=== PATIENT | male | born 1960 | race Caucasian/White ===

== ENCOUNTER 2018-01-07 11:33 | Observation (INO) | payer SELFPAY ==
--- NOTE | 2018-01-07 11:43 | ER Report ---
History and Physical Time Seen By MD: 11:42 Hx. of Stated Complaint: PT OD LAST NIGHT POSS XCANAX AND VSALIUM HPI/ROS CHIEF COMPLAINT: Altered mental status HISTORY OF PRESENT ILLNESS: This is a 57-year-old male who presents to the emergency department via EMS for altered mental status and questionable overdose. According to EMS the patient's had a questionable overdose yesterday, EMS did evaluate the patient and the patient did sign out, was not transported into the ER. The patient's girlfriend did call EMS again today, concerned that he may have overdosed on his Valium and Xanax. Patient has slurred speech, acc ording to EMS patient normally has some slurred speech but seems to be more prevalent today. While I'm in evaluating the patient, he denies intentionally overdosing, he states he did take 2 extra of his Valium and 2 extra of his Xanax this morning so that he could sleep. Patient denies any recent fevers or illnesses. Patient also states that he has had a stroke in the past, denies headaches, chest pain or shortness of breath. No other complaints at this time. Patient's speech is very slurred, continues to follow sleep during my examination. The patient also states that he is only been in this area for 3 days, he moved from [place]. REVIEW OF SYSTEMS: Constitutional: No fever, no chills. Eyes: No discharge. ENT: No sore throat. Cardiovascular: No chest pain, no palpitations. Respiratory: No cough, no shortness of breath. Gastrointestinal: No abdominal pain, no vomiting. Genitourinary: No hematuria. Musculoskeletal: No back pain. Skin: No rashes. Neurological: As above. Psych: As above. Allergies: Coded Allergies: No Known Drug Allergies (Unverified , 01/07/18) Home Meds Reported Medications Ropinirole Hcl (ROPINIROLE HCL) 5 Mg Tablet, 5 MG PO QPM 01/07/18 Naproxen Sodium (ALEVE) 220 Mg Capsule, 220 MG PO TID PRN for PAIN, CAPSULE 01/07/18 Olanzapine (OLANZAPINE) 20 Mg Tablet, 20 MG PO QPM 01/07/18 Ondansetron Hcl (ONDANSETRON HCL) 4 Mg Tablet, 4 MG PO BID PRN for NAUSEA, TAB 01/07/18 Naproxen (NAPROXEN) 500 Mg Tablet, 500 MG PO BIDBS PRN for INDIGESTION, TAB 01/07/18 Past Medical/Surgical History Patient has a past medical and surgical history of chronic pain, benzodiazepine use, stroke. COPD, cancer drinks daily. Reviewed Nurses Notes: Yes Constitutional Vital Sign - Last 24 Hours 01/07/18 01/07/18 01/07/18 01/07/18 11:33 11:35 11:36 11:48 Temp 97.8 Pulse ??? 70 65 Resp 15 25 B/P (MAP) 139/87 (104) 139/87 Pulse Ox 91 90 O2 Delivery Room Air 01/07/18 01/07/18 01/07/18 01/07/18 12:00 12:03 12:06 12:18 Pulse 64 ??? Resp 17 B/P (MAP) ???/??? (1665) 140/94 (109) 01/07/18 01/07/18 01/07/18 01/07/18 12:20 12:25 12:33 12:40 Pulse ??? Resp 21 B/P (MAP) 134/92 (106) 138/102 (114) Pulse Ox 85 O2 Flow Rate 2.0 01/07/18 01/07/18 01/07/18 01/07/18 12:48 13:00 13:03 13:18 Pulse 63 54 57 Resp 20 21 20 B/P (MAP) 139/84 (102) Pulse Ox 95 96 96 01/07/18 01/07/18 01/07/18 01/07/18 13:20 13:40 14:00 14:10 Pulse 55 Resp 18 B/P (MAP) 136/89 (105) 142/87 (105) 139/91 (107) Pulse Ox 93 Physical Exam General Appearance: The patient is alert however does rapidly returned to sleep without direct interaction, has no immediate need for airway protection and no signs of toxicity. Eyes: Pupils equal and round no pallor or injection. EOMs intact, no lateral or vertical nystagmus. ENT, Mouth: Mucous membranes are moist. Dry and geographic tongue. Missing dentures. Respiratory: There are no retractions, lungs are clear to auscultation. Cardiovascular: Regular rate and rhythm, no murmurs, clicks or rubs. Gastrointestinal: Abdomen is soft and non tender, no masses, bowel sounds normal. Neurological: Alert and oriented to self, year, president but not location, however the patient moved to the area within the last 3 days, moving all extremities. Following all commands. No focal neuro deficits. Unable to lift bilateral lower extremities secondary to pain in the knees. Negative pronator drift. Slurred speech unsure if this is baseline, exacerbated at baseline due to no teeth. Skin: Warm and dry, no rashes. Eczema and psoriasis on her chest, abdomen and knees. Musculoskeletal: Neck is supple non tender. Extremities are nontender, nonswollen and have full range of motion. DIFFERENTIAL DIAGNOSIS: After history and physical exam differential diagnosis was considered for altered mental status including but not limited to hypoglycemia, infectious process, electrolyte abnormality, head injury and intoxicants. Medical Decision Making Data Points Result Diagram: 01/07/18 1246 01/07/18 1246 Laboratory Hematology Test 01/07/18 12:10 01/07/18 12:46 01/07/18 13:04 Whole Blood Glucose 101 mg/DL (75-110) Red Blood Count 5.05 M/uL (4.00-5.60) Mean Corpuscular Volume 94.6 fL (80.0-96.0) Mean Corpuscular Hemoglobin 32.0 pg (26.0-33.0) Mean Corpuscular Hemoglobin Concent 33.8 g/dL (32.0-36.0) Red Cell Distribution Width 14.9 % (11.5-14.5) Mean Platelet Volume 9.1 fL (7.2-11.1) Neutrophils (%) (Auto) 67.2 % (39.4-72.5) Lymphocytes (%) (Auto) 25.4 % (17.6-49.6) Monocytes (%) (Auto) 6.1 % (4.1-12.4) Eosinophils (%) (Auto) 0.4 % (0.4-6.7) Basophils (%) (Auto) 0.9 % (0.3-1.4) Nucleated RBC Relative Count (auto) 0.0 /100WBC Neutrophils # (Auto) 5.4 K/uL (2.0-7.4) Lymphocytes # (Auto) 2.0 K/uL (1.3-3.6) Monocytes # (Auto) 0.5 K/uL (0.3-1.0) Eosinophils # (Auto) 0.0 K/uL (0.0-0.5) Basophils # (Auto) 0.1 K/uL (0.0-0.1) Nucleated RBC Absolute Count (auto) 0.00 K/uL Sodium Level 144 mmol/L (137-145) Potassium Level 3.8 mmol/L (3.5-5.0) Chloride Level 104 mmol/L (98-107) Carbon Dioxide Level 30 mmol/L (22-30) Blood Urea Nitrogen 8 mg/dl (9-21) Creatinine 0.70 mg/dl (0.66-1.25) Glomerular Filtration Rate Calc > 60.0 Random Glucose 96 mg/dl (75-110) Calcium Level 9.2 mg/dl (8.4-10.2) Magnesium Level 2.3 mg/dl (1.7-2.2) Total Bilirubin 0.8 mg/dl (0.2-1.3) Aspartate Amino Transf (AST/SGOT) 57 U/L (0-35) Alanine Aminotransferase (ALT/SGPT) 53 U/L (0-56) Alkaline Phosphatase 92 U/L (0-126) Ammonia 10 UMOL/L (9-33) Total Protein 6.8 g/dl (6.3-8.2) Albumin 3.6 g/dl (3.5-5.0) Thyroid Stimulating Hormone (TSH) 0.79 uIU/ml (0.46-4.68) Salicylates Level < 10 mg/L Salicylate Last Dose Date unk Acetaminophen Level < 10 ug/ml Serum Alcohol < 10 mg/dl Urine Color Yellow Urine Clarity Clear Urine pH 7.0 pH (4.8-9.5) Urine Specific [place] 1.008 Urine Protein Negative mg/dL (NEGATIVE) Urine Glucose (UA) Negative mg/dL (NEGATIVE) Urine Ketones Negative mg/dL (NEGATIVE) Urine Blood Negative (NEGATIVE) Urine Nitrite Negative (NEGATIVE) Urine Bilirubin Negative (NEGATIVE) Urine Urobilinogen 4.0 mg/dL (0.2-1.9) Urine Leukocyte Esterase Negative (NEGATIVE) Urine RBC None /HPF (0-2/HPF) Urine WBC 1 /HPF (0-5/HPF) Urine Squamous Epithelial Cells Few /LPF (NONE-FEW) Urine Bacteria Negative /HPF (NONE-FEW) Urine Mucus None /HPF (NONE-FEW) Urine Opiates Screen Negative Urine Barbiturates Screen Negative Ur Tricyclic Antidepressants Screen Negative Urine Phencyclidine Screen Negative Urine Amphetamines Screen Negative Urine Benzodiazepines Screen Positive Urine Cocaine Screen Negative Urine Cannabinoids Screen Negative Chemistry Test 01/07/18 12:10 01/07/18 12:46 01/07/18 13:04 Whole Blood Glucose 101 mg/DL (75-110) White Blood Count 8.0 k/uL (4.5-11.0) Red Blood Count 5.05 M/uL (4.00-5.60) Hemoglobin 16.1 g/dL (14.0-18.0) Hematocrit 47.7 % (42.0-52.0) Mean Corpuscular Volume 94.6 fL (80.0-96.0) Mean Corpuscular Hemoglobin 32.0 pg (26.0-33.0) Mean Corpuscular Hemoglobin Concent 33.8 g/dL (32.0-36.0) Red Cell Distribution Width 14.9 % (11.5-14.5) Platelet Count 218 K/uL (150-450) Mean Platelet Volume 9.1 fL (7.2-11.1) Neutrophils (%) (Auto) 67.2 % (39.4-72.5) Lymphocytes (%) (Auto) 25.4 % (17.6-49.6) Monocytes (%) (Auto) 6.1 % (4.1-12.4) Eosinophils (%) (Auto) 0.4 % (0.4-6.7) Basophils (%) (Auto) 0.9 % (0.3-1.4) Nucleated RBC Relative Count (auto) 0.0 /100WBC Neutrophils # (Auto) 5.4 K/uL (2.0-7.4) Lymphocytes # (Auto) 2.0 K/uL (1.3-3.6) Monocytes # (Auto) 0.5 K/uL (0.3-1.0) Eosinophils # (Auto) 0.0 K/uL (0.0-0.5) Basophils # (Auto) 0.1 K/uL (0.0-0.1) Nucleated RBC Absolute Count (auto) 0.00 K/uL Glomerular Filtration Rate Calc > 60.0 Calcium Level 9.2 mg/dl (8.4-10.2) Magnesium Level 2.3 mg/dl (1.7-2.2) Total Bilirubin 0.8 mg/dl (0.2-1.3) Aspartate Amino Transf (AST/SGOT) 57 U/L (0-35) Alanine Aminotransferase (ALT/SGPT) 53 U/L (0-56) Alkaline Phosphatase 92 U/L (0-126) Ammonia 10 UMOL/L (9-33) Total Protein 6.8 g/dl (6.3-8.2) Albumin 3.6 g/dl (3.5-5.0) Thyroid Stimulating Hormone (TSH) 0.79 uIU/ml (0.46-4.68) Salicylates Level < 10 mg/L Salicylate Last Dose Date unk Acetaminophen Level < 10 ug/ml Serum Alcohol < 10 mg/dl Urine Color Yellow Urine Clarity Clear Urine pH 7.0 pH (4.8-9.5) Urine Specific [place] 1.008 Urine Protein Negative mg/dL (NEGATIVE) Urine Glucose (UA) Negative mg/dL (NEGATIVE) Urine Ketones Negative mg/dL (NEGATIVE) Urine Blood Negative (NEGATIVE) Urine Nitrite Negative (NEGATIVE) Urine Bilirubin Negative (NEGATIVE) Urine Urobilinogen 4.0 mg/dL (0.2-1.9) Urine Leukocyte Esterase Negative (NEGATIVE) Urine RBC None /HPF (0-2/HPF) Urine WBC 1 /HPF (0-5/HPF) Urine Squamous Epithelial Cells Few /LPF (NONE-FEW) Urine Bacteria Negative /HPF (NONE-FEW) Urine Mucus None /HPF (NONE-FEW) Urine Opiates Screen Negative Urine Barbiturates Screen Negative Ur Tricyclic Antidepressants Screen Negative Urine Phencyclidine Screen Negative Urine Amphetamines Screen Negative Urine Benzodiazepines Screen Positive Urine Cocaine Screen Negative Urine Cannabinoids Screen Negative Toxicology Test 01/07/18 12:46 01/07/18 13:04 Salicylates Level < 10 mg/L Salicylate Last Dose Date unk Acetaminophen Level < 10 ug/ml Serum Alcohol < 10 mg/dl Urine Opiates Screen Negative Urine Barbiturates Screen Negative Ur Tricyclic Antidepressants Screen Negative Urine Phencyclidine Screen Negative Urine Amphetamines Screen Negative Urine Benzodiazepines Screen Positive Urine Cocaine Screen Negative Urine Cannabinoids Screen Negative Urinalysis Test 01/07/18 13:04 Urine Color Yellow Urine Clarity Clear Urine pH 7.0 pH (4.8-9.5) Urine Specific [place] 1.008 Urine Protein Negative mg/dL (NEGATIVE) Urine Glucose (UA) Negative mg/dL (NEGATIVE) Urine Ketones Negative mg/dL (NEGATIVE) Urine Blood Negative (NEGATIVE) Urine Nitrite Negative (NEGATIVE) Urine Bilirubin Negative (NEGATIVE) Urine Urobilinogen 4.0 mg/dL (0.2-1.9) Urine Leukocyte Esterase Negative (NEGATIVE) Urine RBC None /HPF (0-2/HPF) Urine WBC 1 /HPF (0-5/HPF) Urine Squamous Epithelial Cells Few /LPF (NONE-FEW) Urine Bacteria Negative /HPF (NONE-FEW) Urine Mucus None /HPF (NONE-FEW) EKG/Imaging EKG Interpretation 12 lead EKG: Time of EKG 1141. Rhythm: Normal sinus rhythm, ventricular rate 62 bpm. Ruffin: normal QRS: normal ST segments: No ST elevation or depression identified. Poor T-wave progression in V2, V3. [place] [facility] [place] rK[place] : 1960 Visit/Account:[id number] Date of Sevice: 01/07/2018 EXAMINATION: CT Head without intravenous contrast HISTORY: Altered mental status. TECHNIQUE: Axial images were obtained from the skull base to the vertex without intravenous contrast. Sagittal and coronal reformatted images are also submitted. One of the following dose optimization techniques was utilized in the performance of this exam: Automated exposure control; adjustment of the mA and/or kV according to the patient's size; or use of an iterative reconstruction technique. Specific details can be referenced in the facility's radiology CT exam operational policy. COMPARISON: None available. FINDINGS: Brain volume: Normal. Ventricles: Negative. Acute ischemic changes: None. Hemorrhage: None. Masses / edema: None. Prasad-white: Negative. White matter: Negative. Vessels: Mild carotid siphon calcification. Normal density in the dural venous sinuses. Extra-axial: Negative. Calvarium / skull base: Negative. Visualized sinuses / orbits: Leftward nasal septal deviation. IMPRESSION: No acute intracranial abnormality. Report Dictated By: Patricia Monteiro MD at 01/07/2018 1:04 PM Report E-Signed By: Patricia Monteiro MD at 01/07/2018 1:09 PM WSN:[email or web address] [place] [facility] [place] Kristopher Inman : 1960 Visit/Account:[id number] Date of Sevice: 01/07/2018 HISTORY: Altered status DATE: 01/07/2018 11:56 AM TECHNIQUE: CHEST SINGLE AP COMPARISON: none FINDINGS: The cardiomediastinal silhouette is of normal size and contour. No pleural effusion. No pneumothorax. No consolidation. The lungs are adequately expanded. IMPRESSION: No acute findings. Report Dictated By: Amanda Grimes MD at 01/07/2018 1:08 PM Report E-Signed By: Amanda Grimes MD at 01/07/2018 1:09 PM WSN:[id number] ED Course/Re-evaluation Clinical Indication for ER IV: Hydration, IV Access ED Course The patient was admitted to a room. A history and physical obtained. Differen tial diagnoses were considered. An IV was started. A CBC, CMP, catheter UA and tox screen were obtained. The CBC is unremarkable, chemistry unremarkable, negative serum alcohol, tox screen negative except for benzodiazepines negative urine. A CT of the head was negative for any acute intracranial abnormalities. Single view chest x-ray was negative for any acute cardiopulmonary process. I did try to explain these to the patient, he was still very very somnolent, not able to stay awake while was talking to him. Continue to have snoring respirations. Did have a very weak cough. Patient's speech was very slurred and very incomprehensible most the time, I did wash his mouth out with a moist washc loth which did seem to help, I did tell the patient that I was concerned that sending him home would potentially lead to an aspiration event and he was agreeable to admission to the hospital. I did speak with Dr. Silva as noted below, he has accepted the patient in the hospitalist services for altered mental status and intentional overdose of benzodiazepines. Patient did get a 1 L normal saline bolus. 01/07/2018 2:01:01 pm I did speak with the patient about the information to the family, the patient's old boy did say he did not want any information released was family fits in the waiting room. I also asked the patient if it's possible I would talk to the hospitalist about keeping him in the hospital, my concern is that he is not able to manage himself at home, my concern would be aspiration. I did speak with Dr. Silva regarding the patient's case, he has accepted the patient into the hospitalist services for observation, unintentional overdose and altered mental status. Decision to Disposition Date: Jan 07, 2018 Decision to Disposition Time: 14:00 Depart Departure Latest Vital Signs Vital Signs Date Time Temp Pulse Resp B/P (MAP) Pulse Ox O2 Delivery O2 Flow Rate FiO2 01/07/18 14:10 55 18 93 01/07/18 14:00 139/91 (107) 01/07/18 12:25 2.0 01/07/18 11:36 97.8 Room Air Impression: Primary Impression: Benzodiazepine (tranquilizer) overdose Additional Impression: Altered mental status Condition: Condition Unchanged Disposition: Admitted from ER Problem Qualifiers Primary Impression: Benzodiazepine (tranquilizer) overdose Encounter type: initial encounter Injury intent: undetermined intent Qualified Codes: T42.4X4A - Poisoning by benzodiazepines, undetermined, initial encounter Additional Impression: Altered mental status Altered mental status type: somnolence Qualified Codes: R40.0 - Somnolence PATRICIA MALAVE CARDIAC CATH LAB RADIOLOGY TECHNOLOGIST-BC Jan 07, 2018 11:42
[2018-01-07] MEDS ORDERED: NS(*) 0.9% 1000 ML BAG 1,000 ML IV ONE (11:56)
--- NOTE | 2018-01-07 12:03 | EKG ---
FACILITY: [facility] [place] PATIENT NAME: FOSTER RIVAS : [id number] MR: [id number] V: [id number] EXAM DATE: ORDERING PHYSICIAN: PATRICIA MALAVE TECHNOLOGIST: DEVIN Borden Reason : NEURO Blood Pressure : / mmHG Vent. Rate : 062 BPM Atrial Rate : 062 BPM P-R Int : 184 ms QRS Dur : 086 ms QT Int : 442 ms P-R-T Axes : 001 021 005 degrees QTc Int : 448 ms Normal sinus rhythm Normal ECG No previous ECGs available Confirmed by MARCIE BOSS ([id number]) on 01/07/2018 8:16:21 PM Referred By: Confirmed By:MARCIE BOSS
[2018-01-07 12:55] LABS: PLATELET COUNT, AUTOMATED 218 K/uL (150-450)
--- NOTE | 2018-01-07 13:12 | RADIOLOGY IMAGING REPORT ---
FACILITY: [facility] PATIENT NAME: Kristopher Inman : 1960 MR: [id number] V: [id number] EXAM DATE: [id number] ORDERING PHYSICIAN: PATRICIA MALAVE TECHNOLOGIST: Location: [facility] [place] Patient: Kristopher Inman : 1960 Visit/Account:[id number] Date of Sevice: 01/07/2018 EXAMINATION: CT Head without intravenous contrast HISTORY: Altered mental status. TECHNIQUE: Axial images were obtained from the skull base to the vertex without intravenous contrast . Sagittal and coronal reformatted images are also submitted. One of the following dose optimization techniques was utilized in the performance of this exam: Autom ated exposure control; adjustment of the mA and/or kV according to the patient's size; or use of an i terative reconstruction technique. Specific details can be referenced in the facility's radiology C T exam operational policy. COMPARISON: None available. FINDINGS: Brain volume: Normal. Ventricles: Negative. Acute ischemic changes: None. Hemorrhage: None. Masses / edema: None. Prasad-white: Negative. White matter: Negative. Vessels: Mild carotid siphon calcification. Normal density in the dural venous sinuses. Extra-axial: Negative. Calvarium / skull base: Negative. Visualized sinuses / orbits: Leftward nasal septal deviation. IMPRESSION: No acute intracranial abnormality. Report Dictated By: Patricia Monteiro MD at 01/07/2018 1:04 PM Report E-Signed By: Patricia Monteiro MD at 01/07/2018 1:09 PM WSN:[email or web address]
--- NOTE | 2018-01-07 13:13 | RADIOLOGY IMAGING REPORT ---
FACILITY: [facility] PATIENT NAME: Kristopher Inman : 1960 MR: [id number] V: [id number] EXAM DATE: ORDERING PHYSICIAN: PATRICIA MALAVE TECHNOLOGIST: Location: [facility] [place] Patient: Kristopher Inman : 1960 Visit/Account:[id number] Date of Sevice: 01/07/2018 HISTORY: Altered status DATE: 01/07/2018 11:56 AM TECHNIQUE: CHEST SINGLE AP COMPARISON: none FINDINGS: The cardiomediastinal silhouette is of normal size and contour. No pleural effusion. No pne umothorax. No consolidation. The lungs are adequately expanded. IMPRESSION: No acute findings. Report Dictated By: Amanda Grimes MD at 01/07/2018 1:08 PM Report E-Signed By: Amanda Grimes MD at 01/07/2018 1:09 PM WSN:[id number]
[2018-01-07] MEDS ORDERED: INFLUENZA VIRUS VAC 0.5ML SYR IM ONLY ONE (15:15)
[2018-01-07] MEDS: ALBUTEROL/IPRATROPIUM 3 ML NEB NEB PRN (15:26)
--- NOTE | 2018-01-07 15:39 | History & Physical ---
History of Present Illness Chief Complaint Altered Mental Status History of Present Illness He is a 57-year-old male who presented to the emergency department via EMS for altered mental status and questionable overdose. According to EMS the patient's had a questionable overdose yesterday, EMS did evaluate the patient and the patient did sign out, was not transported into the ER. The patient's friend did call EMS again today, concerned that he may have overdosed on his Valium and Xanax. Patient has slurred speech, according to EMS patient normally has some slurred speech but seems to be more prevalent today. He denied intentionally overdosing to ER staff, and stated he did take 2 extra of his Valium and 2 extra of his Xanax this morning so that he could sleep. Patient denies any recent fevers or illnesses. Patient also states that he has had a stroke in the past, denies headaches, chest pain or shortness of breath. No other complaints at this time. Patient's speech is very slurred and not understandable, continues to follow sleep during my examination. The patient also states that he is only been in this area for 3 days, he moved from [place]. He was recommended for admission. History Problems: (1) COPD (chronic obstructive pulmonary disease) Status: Chronic (2) Cancer of abdomen Allergies: Coded Allergies: No Known Drug Allergies (Unverified , 01/07/18) Hx Alcohol Use: Yes (DAILY BEERS) Review of Systems All Systems Reviewed/Normal: Yes, Except as Noted Neurological: Slurred Speech Respiratory: Cough, Wheezing Exam Vital Signs Vital Signs Date Time Temp Pulse Resp B/P (MAP) Pulse Ox O2 Delivery O2 Flow Rate FiO2 01/07/18 12:25 2.0 01/07/18 11:36 97.8 70 15 139/87 91 Room Air General Appearance: Afebrile Neuro: Other (somnolent throughout exam) Cardiovascular: Regular Rate and Rhythm Respiratory: Other (expiratory wheezes present) Extremities: No Edema Integumentary: Other (psorasis present to bilat knees) Psych: Other (somnolent) Medical Decision Making Data Points Result Diagram: 01/07/18 1246 01/07/18 1246 EKG / Imaging Imaging FACILITY: [facility] [place] PATIENT NAME: Kristopher Inman : 1960 MR: [id number] V: [id number] EXAM DATE: ORDERING PHYSICIAN: JOSE MIGUEL MALAVE TECHNOLOGIST: [facility] Patient: Kristopher Inman : 1960 Visit/Account:[id number] Date of Sevice: 01/07/2018 HISTORY: Altered status DATE: 01/07/2018 11:56 AM TECHNIQUE: CHEST SINGLE AP COMPARISON: none FINDINGS: The cardiomediastinal silhouette is of normal size and contour. No pleural effusion. No pneumothorax. No consolidation. The lungs are adequately expanded. IMPRESSION: No acute findings. Report Dictated By: Amanda Grimes MD at 01/07/2018 1:08 PM Report E-Signed By: Amanda Grimes MD at 01/07/2018 1:09 PM PATIENT NAME: Kristopher Inman : 1960 MR: [id number] V: [id number] EXAM DATE: [id number] ORDERING PHYSICIAN: JOSE MIGUEL MALAVE TECHNOLOGIST: [facility] Patient: Kristopher Inman : 1960 Visit/Account:[id number] Date of Sevice: 01/07/2018 EXAMINATION: CT Head without intravenous contrast HISTORY: Altered mental status. TECHNIQUE: Axial images were obtained from the skull base to the vertex without intravenous contrast. Sagittal and coronal reformatted images are also submitted. One of the following dose optimization techniques was utilized in the performance of this exam: Automated exposure control; adjustment of the mA and/or kV according to the patient's size; or use of an iterative reconstruction technique. Specific details can be referenced in the facility's radiology CT exam operational policy. COMPARISON: None available. FINDINGS: Brain volume: Normal. Ventricles: Negative. Acute ischemic changes: None. Hemorrhage: None. Masses / edema: None. Prasad-white: Negative. White matter: Negative. Vessels: Mild carotid siphon calcification. Normal density in the dural venous sinuses. Extra-axial: Negative. Calvarium / skull base: Negative. Visualized sinuses / orbits: Leftward nasal septal deviation. IMPRESSION: No acute intracranial abnormality. Report Dictated By: Jose Miguel Monteiro MD at 01/07/2018 1:04 PM Report E-Signed By: Jose Miguel Monteiro MD at 01/07/2018 1:09 PM Assessment and Plan Problems: (1) Altered mental status Status: Acute Assessment & Plan: He was admitted with slurred speech. Unable to understand the patient for examination. He will be placed NPO, as he appears he could aspirate due to sedation. (2) Benzodiazepine (tranquilizer) overdose Status: Acute Assessment & Plan: He does take Valium and Xanax. This will be held during admission. (3) COPD (chronic obstructive pulmonary disease) Status: Chronic Assessment & Plan: He was admitted with wheezing and coughing. His friend believes he has COPD. Unknown if he is treated for it. He will be placed on Duoneb treatments. (4) Cancer of abdomen Assessment & Plan: His friend believes he has cancer of the abdomen, which has been making him nauseous lately. But, will wait until he awakes to confirm diagnosis. She doesn't think he had treatment for it. Venous Thromboembolism Antithrombotics Is Pt On Any Antithrombotics?: Yes Exam Sepsis Risk: No Definite Risk Problem Qualifiers (1) Altered mental status: Altered mental status type: somnolence Qualified Codes: R40.0 - Somnolence (2) Benzodiazepine (tranquilizer) overdose: Encounter type: initial encounter Injury intent: undetermined intent Qu alified Codes: T42.4X4A - Poisoning by benzodiazepines, undetermined, initial encounter YANETH IYER NEEDLE P[employer]CH MACHINE OPERATOR Jan 07, 2018 15:39
[2018-01-07] MEDS ORDERED: NAPR220C12 PO (16:17)
[2018-01-07] MEDS ORDERED: ROPI5TAB20 PO (16:17)
[2018-01-07] MEDS ORDERED: NAPR500T31 PO (16:17)
[2018-01-07] MEDS ORDERED: ONDA-2 PO (16:17)
[2018-01-07] MEDS ORDERED: OLAN20TA22 PO (16:17)
[2018-01-07 20:24] VITALS: BP 148/97
[2018-01-08 03:53] VITALS: BP 126/87
[2018-01-08] MEDS: ALBUTEROL/IPRATROPIUM 3 ML NEB NEB PRN ×2 (04:38→09:45)
[2018-01-08 07:29] VITALS: BP 133/83
[2018-01-08] MEDS ORDERED: ENOXAPARIN 40 MG/0.4ML SYR SC SCH (09:00)
--- NOTE | 2018-01-08 09:39 | Hospitalist Depart ---
Discharge Summary Reason for Hosp/Final Diag: (1) Altered mental status Status: Acute Hospital Course & Plan: He was admitted with slurred speech and was unable to understand the patient for examination. He was placed NPO, as he was at risk for aspiration due to sedation from benzo overdose. He has improved in mental s tatus, and he is able to speak clearly this morning. (2) Benzodiazepine (tranquilizer) overdose Status: Acute Hospital Course & Plan: He did take Valium and Xanax in overdose. He does not have rx for this medication. Unsure where he did receive medication from. His ex- called the medical floor last night and reported that he does often overdose for "attention". She states since February he has been detained 7 times for suicide attempts. I consulted Dr. Rojo and has agreed to accept this patient to [facility] services, as he is now cleared medically. He was unwilling to sign in voluntarily, so he was emergency detained. He will be transferred to [facility] for further treatment. (3) COPD (chronic obstructive pulmonary disease) Status: Chronic Hospital Course & Plan: He was admitted with wheezing and coughing. He was placed on Duoneb treatments. (4) Cancer of abdomen Hospital Course & Plan: He states has cancer of the abdomen (unsure what type), which has been making him nauseous lately. He has not required treatment for it. Departure Latest Vital Signs Vital Signs 01/08/18 01/08/18 01/08/18 01/08/18 07:29 09:42 09:46 09:47 Temp 98.2 Pulse 60 Resp 18 B/P (MAP) 133/83 (100) Pulse Ox 91 O2 Delivery Nasal Cannula O2 Flow Rate 2.0 Weight (Pounds): 195 Result Diagram: 01/07/18 1246 01/07/18 1246 Condition: Improved Discharge: [facility] Discharge Instructions Home Meds Reported Medications Ropinirole Hcl (ROPINIROLE HCL) 5 Mg Tablet, 5 MG PO QPM 01/07/18 Naproxen Sodium (ALEVE) 220 Mg Capsule, 220 MG PO TID PRN for PAIN, CAPSULE 01/07/18 Olanzapine (OLANZAPINE) 20 Mg Tablet, 20 MG PO QPM 01/07/18 Ondansetron Hcl (ONDANSETRON HCL) 4 Mg Tablet, 4 MG PO BID PRN for NAUSEA, TAB 01/07/18 Naproxen (NAPROXEN) 500 Mg Tablet, 500 MG PO BIDBS PRN for INDIGESTION, TAB 01/07/18 Diet: Regular Activity: As Tolerated Venous Thromboembolism Antithrombotics Is Pt On Any Antithrombotics?: Yes Problem Qualifiers (1) Altered mental status: Altered mental status type: somnolence Qualified Codes: R40.0 - Somnolence (2) Benzodiazepine (tranquilizer) overdose: Encounter type: initial encounter Injury intent: undetermined intent Qualified Codes: T42.4X4A - Poisoning by benzodiazepines, undetermined, initial encounter YANETH IYERP Jan 08, 2018 09:39
--- NOTE | 2018-01-08 11:26 | BHS - Psychiatric Evaluation ---
ER - Title 25 MHE Evaluation Title 25 Evaluation Patient Detained By: Therapist (Gila chaudhry [facility] Referral Source: Emergency Room where patient said he went for pain in his finger Date Patient Detained: Jan 08, 2018 Time Patient Detained: 09:20 Date Fdc Expires: Jan 11, 2018 Time Fdc Expires: 09:20 Legal Status: Police Hold: No Legal Status: Residence: Other (Says he very recently moved from [place]) Assessment Data Provided By: Patient, Therapist, Other Source (Patient's [facility] nurse, and patient's electronic medical record ) HPI/ROS: Altered mental status HISTORY OF PRESENT ILLNESS: This is a 57-year-old male who presents to the emergency department via EMS for altered mental status and questionable overdose. According to EMS the patient's had a questionable overdose yesterday, EMS did evaluate the patient and the patient did sign out, was not transported into the ER. The patient's girlfriend did call EMS again today, concerned that he may have overdosed on his Valium and Xanax. Patient has slurred speech, according to EMS patient normally has some slurred speech but seems to be more prevalent today. While I'm in evaluating the patient, he denies intentionally overdosing, he states he did take 2 extra of his Valium and 2 extra of his Xanax this morning so that he could sleep. Patient denies any recent fevers or illnesses. Patient also states that he has had a stroke in the past, denies headaches, chest pain or shortness of breath. Admit due to SI or Attempt: No Suicide Plan: No Plan Current Suicide Plan Patient denies. Alcohol or Drugs Involved: Yes (patient says he takes up to four Xanax per day in addition to pain medicine) Is Patient Info Reliable: No (Patient says he was not trying to overdose. It seems possible that patient has lost judgement about safe medicine ingestion.) Is Collateral Info Reliable: No (No collateral information gained at this interview) Current Home Psych Meds: Xanax Mental Status Exam General Appearance: Good Eye Contact, Unkept, Bizarre Mannerisms (Patient naked, and has rigid posture) Speech: No Normal Volume (patient is louder than warranted for the interview); Delayed Mood: Other (patient frustrated about being at the hospital on a Title 25 hold) Affect: Agitated Thought Process: Other (Blaming and minimizing of any safety problems) Thought Content: Suicidal Ideation (Denies ideation, when asked if he has ever tried to take his life before, he says, "I'm not going to answer that." ) Cognition: Alert & Oriented-Person; No Alert & Oriented-Place, No Alert & Oriented-Time, No Jwszl-Blzvyklj-Plarobuvj Memory: Immediate Insight Judgment: Poor Hallucinations: Denies Delusions: Denies Current Risk & History Current Dangerous Risk Assessm: Ubable to Care for Self (Patient may have lost his ability to carefully manage medication regimen, overdose could result in fatality) Past Dangerous Risk Assessm: Suicide Ideation-last 6mo (Unknown at this time.) Prior Alcohol/Drug Abuse Patient acknowledged drinking frequently to a nurse. Previous Suicide Attempt: No Previous Attempt (Says, "I will not answer that." ) Number of Attempts/Description Refuses to give any detail about any past attempts. Previous Psychiatric Illness: Yes (Given medication for anxiety.) Previous Diagnosis/Treatment: Possible anxiety diagnosis Previous Psychiatric Treatment: Yes (Given medication for anxiety.) Risk Assessment & Disposition Evaluated Risk Assessment: Patient is high risk for losing his life. He may have lost his ability to carefully manage medication regimen, overdose could result in fatality. Patient's gf communicated to [facility] medical staff that patient took too many of his medications, and she was concerned. Patient does not receive any outpatient services, and may not understand how to take his medication at recommended doses early, as well as the dangers of combing benzodiazepines with alcohol. Impression: Primary Impression: Benzodiazepine (tranquilizer) overdose Additional Impression: Altered mental status Meets Mental Illness Req.: Yes Meets Dangerousness Req.: Yes Emergency Fdc to be: Upheld Decision Comment: Patient needs to be evaluated as his behaviors put patient at high risk for losing his life. He may have lost his ability to carefully manage medication regimen, overdose could result in fatality. Patient's girl friend communicated to [facility] medical staff that patient took too many of his medications, and she was concerned. Patient does not receive any outpatient services, and may not understand how to take his medication at recommended doses early, as well as the dangers of combing benzodiazepines with alcohol. He denies previous suicidal ideation, but seems to only be refusing to disclose, says, "Im not going to answer that because you want to put me in the nuthouse for it." Patient mental state is altered. He does not know what town he is in. Date of Decision: Jan 08, 2018 Time of Decision: 09:20 Patient is Medically Stable at: Yes Disposition: [facility] Problem Qualifiers Primary Impression: Benzodiazepine (tranquilizer) overdose Encounter type: initial encounter Injury intent: undetermined intent Qualified Codes: T42.4X4A - Poisoning by benzodiazepines, undetermined, initial encounter Additional Impression: Altered mental status Altered mental status type: somnolence Qualified Codes: R40.0 - Somnolence GURU REYES PATTERNMAKER SAMPLE Jan 08, 2018 11:26
[2018-01-08] MEDS ORDERED: ALPR-429 PO (14:23)
[2018-01-08] MEDS ORDERED: DIAZ-308 PO (14:23)
[2018-01-08] MEDS ORDERED: VORT10TA PO (14:23)
[2018-01-08] MEDS ORDERED: ZOLP-358 PO (14:23)
== END 2018-01-08 11:08 ==
LOC: EDBD 11:33 → ER 11:43 → INTOOBSV 14:19 → MED 14:19 → BHS 01-08 11:03
PROVIDERS: ADMIT Family Medicine; ATTEND Psychiatry & Neurology Psychiatry
DX: T42.4X4A Poisoning by benzodiazepines, undetermined, initial encounter (principal); R40.0 Somnolence; J44.9 Chronic obstructive pulmonary disease, unspecified; C76.2 Malignant neoplasm of abdomen
CPT/HCPCS: 36415; 36416; 70450; 71045; 80305; 80320; 80329; 81001; 82140; 82948; 83735; 84443; 85025; 93005; 94640; 96360; 96361; 99284; G0378; J7030; J7620; 82040; 82247; 82310; 82374; 82435; 82565; 82947; 84075; 84132; 84155; 84295; 84450; 84460; 84520

== ENCOUNTER → 2018-01-07 | Outpatient (CLI) | payer OTHER ==
[~2018-01-07] MED LIST: ALPR-429 PO; DIAZ-308 PO; GUAI600T57 PO; IBUP600T22 PO; MULT-1379 PO; NAPR220C12 PO; NAPR500T31 PO; NIC10R INH; NICOTROL CARTRIDGE PO; OLAN20TA22 PO; ONDA-2 PO; ROPI5TAB17 PO; ROPI5TAB20 PO; VORT10TA PO; ZOLP-358 PO; trintellix
== END ==
LOC: AMB 10:24
PROVIDERS: ATTEND Nurse Practitioner
DX: R47.81 Slurred speech (principal); R41.82 Altered mental status, unspecified; R09.02 Hypoxemia
CPT/HCPCS: A0425; A0427

== ENCOUNTER 2018-01-08 11:10 | Inpatient (IN) | payer OTHER ==
[~2018-01-08] VITALS: Ht 177.8 cm; Wt 80.7 kg
[~2018-01-08 11:10] MED LIST changes: -ALPR-429 PO; -DIAZ-308 PO; -GUAI600T57 PO; -IBUP600T22 PO; -MULT-1379 PO; -NIC10R INH; -NICOTROL CARTRIDGE PO; -ROPI5TAB17 PO; -VORT10TA PO; -ZOLP-358 PO; -trintellix
[2018-01-08] MEDS ORDERED: NICOTINE CARTRIDGE 1 EA PO PRN (11:30)
[2018-01-08] MEDS ORDERED: NICOTINE INH SYSTEM 10 MG/INH INH PRN (11:30)
[2018-01-08] MEDS ORDERED: MAG HYD/AL HYD/SIMETH 30ML UDC PO PRN (12:05)
[2018-01-08 12:28] VITALS: BP 136/92
[2018-01-08] MEDS ORDERED: ALPR-429 PO (14:23)
[2018-01-08] MEDS ORDERED: ZOLP-358 PO (14:23)
[2018-01-08] MEDS ORDERED: DIAZ-308 PO (14:23)
[2018-01-08] MEDS ORDERED: VORT10TA PO (14:23)
[2018-01-08] MEDS ORDERED: DIAZEPAM 10 MG TAB PO ONE (16:50)
[2018-01-08] MEDS: ALBUTEROL/IPRATROPIUM 3 ML NEB NEB PRN (19:14)
[2018-01-08] MEDS: rOPINIRole HCL 4 MG TAB PO SCH (21:00)
[2018-01-08] MEDS ORDERED: OLANZapine 5 MG TAB PO SCH (21:00)
[2018-01-08] MEDS: guaiFENesin 600 MG TABCR PO SCH (21:00)
[2018-01-08] MEDS: OLANZapine 5 MG TAB PO SCH (21:00)
[2018-01-08 22:52] VITALS: BP 110/90
[2018-01-09 06:05] VITALS: BP 148/102
[2018-01-09] MEDS: guaiFENesin 600 MG TABCR PO SCH ×2 (08:13→20:23)
[2018-01-09] MEDS: FOLIC ACID 1 MG TAB PO SCH (08:13)
[2018-01-09] MEDS: MULTIVITAMINS PO SCH (08:13)
[2018-01-09] MEDS: THIAMINE HCL 100 MG TAB PO SCH (08:14)
[2018-01-09] MEDS: VORTIOXETINE HYDROBROMIDE 10 MG TAB PO SCH (08:16)
[2018-01-09] MEDS ORDERED: IBUPROFEN 600 MG TAB PO PRN (09:40)
[2018-01-09 11:25] VITALS: BP 124/74
[2018-01-09] MEDS: ALBUTEROL/IPRATROPIUM 3 ML NEB NEB PRN ×2 (12:01→18:26)
[2018-01-09 15:30] VITALS: BP 140/82
[2018-01-09] MEDS: rOPINIRole HCL 4 MG TAB PO SCH (20:23)
[2018-01-09] MEDS: OLANZapine 5 MG TAB PO SCH (20:23)
[2018-01-09 20:56] VITALS: BP 120/75
[2018-01-10 06:36] VITALS: BP 115/78
[2018-01-10] MEDS: FOLIC ACID 1 MG TAB PO SCH (08:08)
[2018-01-10] MEDS: guaiFENesin 600 MG TABCR PO SCH (08:09)
[2018-01-10] MEDS: THIAMINE HCL 100 MG TAB PO SCH (08:09)
[2018-01-10] MEDS: VORTIOXETINE HYDROBROMIDE 10 MG TAB PO SCH (08:09)
[2018-01-10] MEDS: MULTIVITAMINS PO SCH (08:09)
[2018-01-10 09:40] VITALS: BP 120/82
[2018-01-10] MEDS ORDERED: GUAI600T57 PO ×2 (09:57→09:58)
[2018-01-10] MEDS ORDERED: ROPI5TAB17 PO (09:57)
[2018-01-10] MEDS ORDERED: MULT-1379 PO (09:59)
[2018-01-10] MEDS ORDERED: trintellix (10:00)
[2018-01-10] MEDS ORDERED: IBUP600T22 PO (10:02)
[2018-01-10] MEDS ORDERED: NIC10R INH (10:03)
[2018-01-10] MEDS ORDERED: NICOTROL CARTRIDGE PO (10:03)
--- NOTE | 2018-01-10 10:13 | SCHAAF H&P ---
DATE OF ADMISSION: January 08, 2018 ATTENDING PHYSICIAN Dk Rojo MD Patient was seen on the morning of January 09, 2018 at 0900 hours for note concerning this dictation. PRESENTING PROBLEM, CHIEF COMPLAINT Recent overdose, apparently on benzodiazepines. HISTORY OF PRESENT ILLNESS This is 57-year-old male who has been in [place] less than a week. Patient before that was living in the [place] area. Patient was brought by recent acquaintance to live in the [place] area. EMS was contacted at patient had reported to them he had taken too much of his Xanax and Valium. EMS later discharged the patient, only to have to return to see patient with slurred speech again. The patient was brought to the emergency room, evaluated. Minimal communication was made as patient seemed to be suffering from the effects of an overdose on benzodiazepines. Patient was admitted to medical floor for overnight observation and to clear. During this time, patient's ex- from [place] had apparently called the medical floor and told them that patient does this very often and has been emergency detained many times and he does this to get attention. Patient was then interviewed and emergency detailed secondary to overdose brought to Behavioral Health Unit. On arrival in the Behavioral Health Unit, patient threatening to staff at times, subtly stating that he would "crush skulls". Patient drug seeking regarding opiates and benzodiazepines. Patient making claims of having "abdominal cancer" he could not describe causing him pain. Patient was monitored on Behavioral Health initially upon arrival for any benzodiazepine withdrawal. Patient reports again living recently in [place], less than week in [place]. He reports specific stressors in his life as "my medical health". Interview with patient's acquaintance, who has not known him long, indicated that she was trying to help the patient by bringing him here. However, she does not want to continue any relationship with the patient. Patient denying any intention of suicide, denying any depression outside of frustration with his "medical health" and denying any other concerns. MENTAL HEALTH HISTORY The patient reports being an inpatient on a couple of occasions. Patient appears to be less than a fully accurate historian. Patient is not believed to be having any outpatient treatment here but has most recently been following up in [place]. Patient is known to have had prescriptions for Zyprexa and Requip. Further investigation into prescriptions for not only Xanax and Valium but Ambien as well is necessary. FAMILY PSYCHIATRIC HISTORY The patient denies any history of alcohol or drug abuse or any other psychiatric illness in the family other than he reported his brother committed suicide. PAST MEDICAL HISTORY The patient reporting a history of COPD and "cancer" in the abdomen. Patient has ALLERGIES to [place]. SOCIAL HISTORY The patient was born in [place] and raised there. Parents were at the time of his . They when he was approximately age 13. Patient reports an okay childhood. Patient has one living brother. Patient reported graduating high school and "in school". Patient has been x3. Patient reports having a son and a daughter, ages 30 and 31, with no contact with them. Patient recently living outside of [place] with a female friend of minimal duration. LEGAL HISTORY Patient vague as to any legal history. SUBSTANCE ABUSE HISTORY Patient denying any substance abuse history. PHYSICAL EXAMINATION Please see emergency room note. Notable for 57-year-old male who appears somewhat older than stated age, somewhat disheveled with slurred speech secondary to likely drug intoxication. Temperature 97.9, pulse 77, respiratory rate 16, blood pressure 136/92, pulse oximetry 85% on room air and low at time of admission to Behavioral Health. LABORATORY DATA CBC was unremarkable at time of admission. CMP notable for magnesium elevated at 2.3, AST elevated at 57. TSH 0.79. Urinalysis: Urine urobilinogen present. Toxicology screen positive for benzodiazepines, negative for other substances of abuse with a nondetectable serum alcohol level. MENTAL STATUS EXAMINATION GENERAL APPEARANCE, BEHAVIOR AND ATTITUDE: This is a 57-year-old male who appears some ways older than stated age, moderately disheveled. Patient making good eye contact. Psychomotor retardation evident. SPEECH: Remaining somewhat slurred and difficult to understand at times. MOOD: Described as frustrated over being on the Behavioral Health Unit. AFFECT: Constricted and mood-congruent. THOUGHT PROCESSES: Patient is goal-directed, stating he has no need of being on the Behavioral Health Unit. No loose associations or flight of ideas. THOUGHT CONTENT: Free of any obvious auditory or visual hallucinations, ideas of reference, thought broadcastings, delusions, obsessions or compulsions. The patient is adamantly denying suicidal or homicidal ideations. SENSORIUM: Mostly clear. COGNITION: Alert and oriented to person, place, time and partially to situation at time of initial interview. MEMORY: Immediate, recent and remote considered grossly intact. INTELLIGENCE: Average, based on interview so far. INSIGHT AND JUDGMENT: Patient likely suffering from strong history of antisocial personality traits and maladaptive stress coping mechanisms in general combined with drug seeking and drug abuse. ASSESSMENT This is a 57]-year-old male who is mildly cooperative with initial interview. Patient appears to be a less than fully accurate historian regarding many topics. At this time, we will continue to gain collateral information in order to promote safe discharge and travel outside of [place], which patient has had just a brief stay. Patient's altitude may be contributing to patient's overall hypoxemia as well. We will continue to evaluate for any benzodiazepine withdrawal. DIAGNOSES 1. Hypnotic intoxication, benzodiazepines. 2. Hypnotic use disorder, benzodiazepines. 3. Chronic pain per patient. 4. Chronic medical stressors per patient. 5. Patient likely having personality disorder, unspecified, with strong antisocial traits. PLAN 1. Admit to the Unit. 2. Necessary precautions will be implemented. 3. The patient will participate in individual and group therapy. 4. Medications will be evaluated and titrated as necessary. . 5. Collateral information to be obtained. 6. Estimated length of stay three to five days. MTDD
[2018-01-10] MEDS: ALBUTEROL/IPRATROPIUM 3 ML NEB NEB PRN (11:21)
--- NOTE | 2018-01-11 12:00 | SCHAAF DISCHARGE ---
DATE OF ADMISSION: January 08, 2018 DATE OF DISCHARGE: January 10, 2018 ATTENDING PHYSICIAN Dk Rojo MD Patient was seen on January 10, 2018 at approximately 0945 hours for note concerning this dictation. FINAL DIAGNOSES Hypnotic use disorder, severe, benzodiazepines and Ambient. Patient verbalizing chronic pain and chronic medical conditions which were not verified and patient likely suffering from personality disorder, unspecified, with strong antisocial traits, likely antisocial personality disorder. PHYSICAL EXAMINATION Please see emergency room note and medical floor notes from overnight admission, notable for a 57-year-old male somewhat disheveled and lethargic at time of admission. No acute medical distress. . Vital signs at the time of admission: Temperature 97.8, pulse 70], respiratory rate 15], blood pressure 139/87 and pulse oximetry 91% on room air. At time of discharge from [facility], temperature 98.1, pulse 82, respiratory rate 16, blood pressure 120/82 and pulse oximetry 92% on room air. LABORATORY DATA CBC on January 07, 2018 unremarkable. Chemistry panel on January 07, 2018 notable for AST slightly elevated at 57, magnesium slightly elevated at 2.3. TSH 0.79. Urinalysis notable for urobilinogen present and toxicology screen positive for benzodiazepine at time of admission. Negative for other substances of abuse with a nondetectable serum alcohol level. MENTAL STATUS EXAMINATION GENERAL APPEARANCE, BEHAVIOR AND ATTITUDE: At time of discharge, this is a mildly cooperative, nonthankful, 57-year-old male who continues to demonstrate some mild psychomotor retardation. Patient interacting in a way consistent with antisocial personality disorder. SPEECH: Considered baseline, difficult to understand at times. MOOD: Neutral. AFFECT: Neutral. Mood congruent. THOUGHT PROCESSES: Goal-directed. Patient willing to get on bus to [place]. Patient having no obvious loose associations or flight of ideas. Patient logical. THOUGHT CONTENT: Free of auditory or visual hallucinations, ideas of reference, thought broadcastings, delusions, obsessions or compulsions. The patient is adamantly denying suicidal or homicidal ideation. SENSORIUM: Clear. COGNITION: Alert and oriented to person, place, time and situation. MEMORY: Immediate, recent and remote was grossly intact. INTELLIGENCE: Low average, based on interview. INSIGHT AND JUDGMENT: Considered grossly intact in the absence of substance use. RESULTS OF TESTING Imaging: Please see chest x-ray and head CT on January 07, 2018. Both unremarkable. Laboratory data: See above. CONSULTATIONS None. TREATMENT Patient received medications, participated to some degree in individual and group therapy. HOSPITAL COURSE This is a 57-year-old male initially placed on medical floor for observation after patient proclaiming nonintentional overdose of Xanax, Valium and potentially Ambien. During this stay for monitoring, the patient's ex- communicated with staff, indicating that patient overdoses often, does not take responsibility and further evaluation was needed. Patient emergency detained and brought to Behavioral Health, where patient interacted in a way consistent with antisocial personality disorder and chronic benzodiazepine and hypnotic use disorder. Patient initially threatening to staff and then patient being calm, polite and cooperative. Patient exhibiting drug-seeking behaviors on the Unit. Patient was given Valium to displace any potential withdrawal from Xanax. This was minimal in nature and considered complete by time of discharge. Help was given to patient to find means of travel back to [place]. Patient had been in [place] briefly with a friend he had met. Patient's friend no longer wanted contact with patient. Patient's belongings were brought to Unit, patient placed on bus and was discharged to [place]. CONDITION OF PATIENT ON DISCHARGE Stable in the absence of excessive benzodiazepine use. Patient had none in his possession at time of discharge. Patient was given multiple attempts at education concerning dangers of continued hypnotic category pill use including benzodiazepines and Ambien. Patient was considered a minimal risk to himself or others in the absence of drug use. DISPOSITION The patient was discharged to the bus station to go to [place]. Patient would follow up there with medication and therapy management. Follow up with medical conditions that patient did not allow us to verify. Patient stating he had abdominal cancer and chronic pain, unable to explain either. Patient was noted to be active on the Unit at times and other times seeking pain meds including opiates. Patient agreed to abstain from benzodiazepines, Ambien, opiates and all other illicit substances. Crisis Line was given should symptoms return. Patient could continue on [id number] Mucinex. Patient would continue on Requip 5 mg at bedtime. Multivitamin with mineral daily. Patient could take his own Trintellix 10 mg daily, Motrin 600 mg p.r.n. for pain [id number]. Patient was encouraged to use nicotine replacement and stop smoking and could use Zyprexa 10 mg at bedtime patient had at home. Patient would stop Ambien, stop Xanax, stop Diazepam and stop Zofran. The risks, benefits and alternatives of the above discharge plan were discussed. Informed consent was given to proceed with the above discharge plan by this competent patient. ARCHIE
== END 2018-01-10 13:33 | disposition home or self-care (01) | DRG 897 ==
LOC: BHS 11:10
PROVIDERS: ADMIT Psychiatry & Neurology Psychiatry; ATTEND Psychiatry & Neurology Psychiatry
DX: F13.20 Sedative, hypnotic or anxiolytic dependence, uncomplicated (principal); F60.2 Antisocial personality disorder; T42.4X4A Poisoning by benzodiazepines, undetermined, initial encounter; R09.02 Hypoxemia; G89.29 Other chronic pain; J44.9 Chronic obstructive pulmonary disease, unspecified; Z81.8 Family history of other mental and behavioral disorders; Z91.5 Personal history of self-harm
CPT/HCPCS: 94640